=== PATIENT | male | born 1955 | race Caucasian/White ===

== ENCOUNTER 2018-04-12 11:12 | Emergency (ER) | payer BC ==
[2018-04-12 11:26] VITALS: BP 115/66
[2018-04-12] MEDS ORDERED: HYDROcod/ACETAM 5/325 MG TABLET PO STA (12:32)
--- NOTE | 2018-04-12 12:32 | ED Physician Documentation ---
PD HPI UPPER EXT INJURY - Stated complaint Stated Complaint: RT WRIST PX - Chief complaint Chief Complaint: Trauma Ext - History obtained from History obtained from: Patient - History of Present Illness Location: Right, Wrist Type of injury: Other (He tripped and fell last night while bowling and hurt his wrist. He points to the medial dorsal wrist, over the ulnar styloid as the area of pain. He has limited range of motion. He did hit his head but has no persistent headache or neurologic complaints.) Review of Systems Constitutional: reports: Reviewed and negative Cardiac: reports: Reviewed and negative Respiratory: reports: Reviewed and negative PD PAST MEDICAL HISTORY - Past Medical History Past Medical History: Yes Cardiovascular: NE Psych: Depression, Anxiety, Post traumatic stress disorder - Past Surgical History Past Surgical History: Yes Cardiovascular: Coronary stent - Present Medications Home Medications: Ambulatory Orders Medication Instructions Recorded Confirmed Atorvastatin [Lipitor] 4 tab PO DAILY 04/12/18 04/12/18 Carvedilol [Coreg] 1 tab PO DAILY 04/12/18 04/12/18 Cholecalciferol (Vitamin D3) 1 tab PO DAILY 04/12/18 04/12/18 [Vitamin D3] Desvenlafaxine Succinate [Pristiq] 1 tab PO DAILY 04/12/18 04/12/18 Eszopiclone [Lunesta] 1 tab PO DAILY 04/12/18 04/12/18 Furosemide [Lasix] 1 tab PO DAILY 04/12/18 04/12/18 Hydrocodone/Acetaminophen 1 - 2 each PO Q6H PRN #14 tablet 04/12/18 [Hydrocodon-Acetaminophen 5-325] Isosorbide Mononitrate ER [Imdur] 1 tab PO DAILY 04/12/18 04/12/18 Lorazepam [Ativan] 1 tab PO DAILY PRN 04/12/18 04/12/18 Metformin HCl [Metformin HCl ER] 1 tab PO DAILY 04/12/18 04/12/18 Nitroglycerin [Nitrostat] 1 tab SL TID PRN 04/12/18 04/12/18 Tadalafil [Cialis] 1 tab PO DAILY PRN 04/12/18 04/12/18 busPIRone [Buspar] 10 mg PO DAILY 04/12/18 04/12/18 busPIRone [Buspar] 20 mg PO DAILY 04/12/18 04/12/18 - Allergies Allergies/Adverse Reactions: Allergies Allergy/AdvReac Type Severity Reaction Status Date / Time No Known Drug Allergies Allergy Verified 04/12/18 11:20 - Social History Does the pt smoke?: Yes Does the pt drink ETOH?: Yes Does the pt have substance abuse?: No PD ED PE NORMAL - Vitals Vital signs reviewed: Yes - General General: Alert and oriented X 3, No acute distress - Neck Neck: Supple, no meningeal sign, No bony TTP - Extremities Extremities: Other (Right wrist is tender over the ulnar styloid and dorsally over the medial carpals. He has limited range of motion in flexion and extension. There is no tenderness over the snuffbox or pain with axial loading of the thumb. Normal neurovascular status in all the digits.) - Neuro Neuro: Alert and oriented X 3, Normal speech Results - Vitals Vitals: Vital Signs - 24 hr 04/12/18 11:16 Temperature 36.8 C Heart Rate 71 Respiratory 16 Rate Blood Pressure 115/66 O2 Saturation 95 Oxygen O2 Source Room air - Rads (name of study) 3v R wrist Radiology: EMP read contemporaneously (normal) PD MEDICAL DECISION MAKING - Sepsis Event Vital Signs: Vital Signs - 24 hr 04/12/18 11:16 Temperature 36.8 C Heart Rate 71 Respiratory 16 Rate Blood Pressure 115/66 O2 Saturation 95 Oxygen O2 Source Room air Departure - Departure Disposition: 01 Home, Self Care Clinical Impression: Right wrist sprain Qualifiers: Encounter type: initial encounter Qualified Code(s): S63.501A - Unspecified sprain of right wrist, initial encounter Condition: Good Record reviewed to determine appropriate education?: Yes Instructions: ED Sprain Wrist Prescriptions: Hydrocodone/Acetaminophen [Hydrocodon-Acetaminophen 5-325] 1 - 2 each PO Q6H PRN #14 tablet PRN Reason: pain Comments: Recheck with your physician in 1 week if not better.
--- NOTE | 2018-04-12 12:35 | XRAY Report ---
Reason: fall/pain Procedure Date: 04/12/2018 Accession Number: [id number] / [id number] Procedure: XR - Wrist 3 View RT CPT Code: FULL RESULT: EXAM: RIGHT WRIST RADIOGRAPHY EXAM DATE: 04/12/2018 12:21 PM. CLINICAL HISTORY: Fall/pain. COMPARISON: None. TECHNIQUE: 3 views. FINDINGS: Bones: Normal. No fractures or bone lesions. Joints: Mild degenerative changes about the first carpometacarpal joint. No subluxations. Soft Tissues: Normal. No soft tissue swelling. IMPRESSION: No fracture or dislocation. [facility]
== END 2018-04-12 12:44 | disposition home or self-care (01) ==
LOC: ED 11:12
DX: S63.501A Unspecified sprain of right wrist, initial encounter (principal); F17.200 Nicotine dependence, unspecified, uncomplicated; W01.10XA Fall on same level from slipping, tripping and stumbling with subsequent striking against unspecified object, initial encounter; Y93.54 Activity, bowling
CPT/HCPCS: 73110; 99283; A9270